=== PATIENT | female | born 1990 | race Caucasian/White ===

== ENCOUNTER 2018-04-23 11:13 | Day surgery (SDC) | payer OTHER ==
[2018-04-23 11:43] VITALS: BMI 37.9
--- NOTE | 2018-04-23 12:10 | PDOC.LDHP ---
Labor and Delivery H&P Chief complaint: other ( Monitoring) HPI: This is a patient of Dr Hogue Sent to Triage for NST Here due to FHTs 120 at office (underwent BPP at [facility] office prior to arrival) HPI: 27 yo with EDC 05/22, EGA 35 weeks 6 days, sent here from [facility] office for NST after FHT check there revealed FHTs around 200. Possible prolonged accel? No LOF HX, no VB, feels baby moving. No recent trauma. BPP performed in office today was "normal" by her report (I do not have that report) . Here for NST follow up. She is undergoing weekly antepartum survellance due to 27 week IUFD in past. She has 2 other deliveries (38 weeks). Per Lennie, APA workup was normal. Review of Systems: complete ROS performed and as per HPI Current gestational age (weeks): 35 (6 days) Due date: 05/22/18 Dating criteria: last menstrual period, other (20 week sono performed as well) Grav: 5 Para: 3 OB History Details: Living 2, one 27 week IUFD Current complications: none Abnormal US findings: No Current medications: pre- vitamins Previous surgical history: none Allergies/Adverse Reactions: Allergies Allergy/AdvReac Type Severity Reaction Status Date / Time No Known Allergies Allergy Verified 04/23/18 11:35 Social history: none - Physical Exam Vital signs reviewed and normal: yes (132/81; 97; temp 98.5; RR 18 unlabored) General: NAD Abdomen: gravid FHT: category 1 (Baseline is 140s with moderate variability and accels) [place] contractions every: none - Assessment Antepartum survelence for this 27 yo [id number] at 35 weeks 6 days. No indication for steroids at this time. NST reactive, criteria met. - Plan Plan: observation in L&D (NST in office which showed FHR tachycardia may have been aberrant read or isolated proloned accel. Image reviewed from office shows "accel" at same time of mother percieved movement by "clicker stamp", doppler may have combined movement with the FHR for aberrant read. No evidence tachycardia now, and reactivity present. I have reviewed this in detail with her. NST reviewed with her as well. Per verbal with Lennie, BPP was 01/27. OK for follow up Thursday.)
== END 2018-04-23 12:23 | disposition home or self-care (01) ==
LOC: L&D/OP 11:13
PROVIDERS: ATTEND Obstetrics & Gynecology
DX: O76 Abnormality in fetal heart rate and rhythm complicating labor and delivery (principal); Z3A.35 35 weeks gestation of pregnancy
CPT/HCPCS: 59025; 99282

== ENCOUNTER 2018-05-19 05:30 | Inpatient (IN) | payer OTHER ==
[2018-05-19] MEDS: Lactated Ringer's 1,000 ML IV SCH ×2 (07:09→13:00)
[2018-05-19] MEDS ORDERED: Misoprostol 200 MCG TAB PR PRN (07:55)
[2018-05-19] MEDS ORDERED: HYDROcodone/Acetaminophen 5/325 mg Tablet PO PRN ×4 (07:55→21:15)
[2018-05-19] MEDS ORDERED: Methylergonovine 0.2 MG/ML VIAL IM PRN (07:55)
[2018-05-19] MEDS ORDERED: Ondansetron PF 4 MG/2 ML Vial IVP PRN ×3 (07:55→21:15)
[2018-05-19] MEDS ORDERED: Ibuprofen 800 MG TAB PO PRN (07:55)
[2018-05-19] MEDS ORDERED: Acetaminophen 500 MG TAB PO PRN (07:55)
[2018-05-19] MEDS ORDERED: Butorphanol Tartrate 1 MG/ML VIAL SLOW IVP PRN (07:55)
[2018-05-19] MEDS ORDERED: Promethazine HCl 25 MG/ML VIAL IM PRN ×3 (07:55→21:15)
[2018-05-19] MEDS ORDERED: Carboprost 250 MCG/ML AMP IM PRN (07:55)
[2018-05-19] MEDS ORDERED: Misoprostol 100 MCG TAB ONE ×2 (07:55→09:39)
[2018-05-19] MEDS ORDERED: Lidocaine 1% (PF) 30 ML VIAL SC PRN (07:55)
[2018-05-19] MEDS ORDERED: NS / Oxytocin 40 units/1000ml 1,000 ML IV PRN (07:55)
[2018-05-19] MEDS ORDERED: NS w/ Oxytocin 10 units 500 ML IV SCH ×2 (08:00)
[2018-05-19] MEDS: Misoprostol 100 MCG TAB VAG SCH (08:02)
[2018-05-19 08:10] LABS: Hemoglobin 12.6 g/dL (12.0-16.0); Mean Corpuscular HGB CONC 33.7 g/dL (32.0-36.0); Mean Corpuscular Hemoglobin 27.7 pg (27.0-31.0); Mean Corpuscular Volume 82.3 fL (78.0-98.0); Mean Platelet Volume 8.4 fL (7.4-10.4); Platelet Count 225 thou/uL (130-400); RBC Distribution Width 12.8 % (11.5-14.5); Red Blood Cell (RBC) Count 4.53 mill/uL (4.20-5.40); White Blood Cell (WBC) Count 11.6 thou/uL (4.8-10.8)
[2018-05-19 08:42] VITALS: BMI 38.6
[2018-05-19 08:49] LABS: HBSAg Index 0.23 S/CO (0-0.99); Hep B Surf Ag Non-Reactive S/CO (NonReactive); Syphilis Antibody Nonreactive (Nonreactive); Syphilis Antibody Index 0.03 S/CO (<1.00 Non-Reactive)
[2018-05-19] MEDS ORDERED: Fentanyl 4 mcg/Bup 0.1% Cadd 100 ML ONE (12:21)
[2018-05-19] MEDS ORDERED: Eucerin (Mineral Oil/Petrolatum,White) 30 gm Jar TOP PRN (12:57)
[2018-05-19] MEDS ORDERED: diphenhydrAMINE 50 MG/ML VIAL IVP PRN (12:57)
[2018-05-19] MEDS ORDERED: ePHEDrine/0.9% NaCl/PF SYRINGE 50 mg/10 ml SLOW IVP PRN (12:57)
[2018-05-19] MEDS ORDERED: Naloxone HCl 0.4 mg/ml Vial IVP PRN ×2 (12:57)
[2018-05-19] MEDS ORDERED: Acetaminophen 325 MG TAB PO PRN (12:57)
[2018-05-19] MEDS ORDERED: Lactated Ringer's 500 ML IV PRN (12:57)
[2018-05-19] MEDS ORDERED: Fentanyl 4 mcg/Bupivacaine 0.1% Cassette 100 ML EPIDURAL SCH (13:00)
[2018-05-19] MEDS ORDERED: Communication Order-Pharmacy FS SCH (13:00)
[2018-05-19] MEDS ORDERED: Bupivacaine/Epinephrine 0.25% 30 ML VIAL ONE (15:00)
[2018-05-19] MEDS ORDERED: Bupivacaine 0.25% HCL 30 ML VIAL ONE (15:00)
--- NOTE | 2018-05-19 19:31 | PDOC.LDHP ---
Labor and Delivery H&P Chief complaint: scheduled induction HPI: 28 y/o at 39 and 4/7 weeks for medical term induction of labor. Grav: 5 Para: 2 Current complications: other (Morbid Obesity, Hx of Demise) Abnormal US findings: No Current medications: pre- vitamins Previous surgical history: none Allergies/Adverse Reactions: Allergies Allergy/AdvReac Type Severity Reaction Status Date / Time No Known Allergies Allergy Verified 04/23/18 11:35 Social history: none - Physical Exam Vital signs reviewed and normal: yes General: NAD Heart: RRR Lungs: nonlabored breathing Abdomen: NTTP Extremeties: no edema FHT: category 1 - Assessment L&D Assessment: medically indicated induction - Plan Plan: admit to L&D, cervical ripening
[2018-05-19] MEDS ORDERED: diphenhydrAMINE 25 MG CAP PO PRN (21:15)
[2018-05-19] MEDS ORDERED: Lanolin Ointment 7 GM TUBE TOP PRN (21:15)
[2018-05-19] MEDS ORDERED: Misoprostol 200 MCG TAB VAG PRN (21:15)
[2018-05-19] MEDS ORDERED: NS / Oxytocin 40 units/1000ml 1,000 ML IV SCH (21:15)
[2018-05-19] MEDS ORDERED: Bisacodyl 10 MG SUPP PR PRN (21:15)
[2018-05-19] MEDS ORDERED: Varicella virus, LIVE 0.5 ML VIAL SC ONE (21:15)
[2018-05-19] MEDS ORDERED: Benzocaine/Menthol 20-0.5% 60 ML CAN TOP PRN (21:15)
[2018-05-19] MEDS ORDERED: Adacel (T-DAP) 0.5 ML VIAL IM ONE (21:15)
[2018-05-19] MEDS ORDERED: Zolpidem Tartrate 5 MG TAB PO PRN (21:15)
[2018-05-19] MEDS ORDERED: Measles/Mumps/Rubella 10 MCG/0.5 ML VIAL SC ONE (21:15)
[2018-05-19] MEDS ORDERED: Milk Of Magnesia 30 ML UDCUP PO PRN (21:15)
[2018-05-19] MEDS ORDERED: Preparation H Ointment 28 GM TUBE PR PRN (21:15)
[2018-05-19] MEDS: Ibuprofen 800 MG TAB PO SCH (22:31)
[2018-05-20] MEDS: Misoprostol 100 MCG TAB VAG SCH (02:17)
[2018-05-20 06:29] LABS: Hemoglobin 11.8 g/dL (12.0-16.0); Mean Corpuscular HGB CONC 34.2 g/dL (32.0-36.0); Mean Corpuscular Hemoglobin 28.5 pg (27.0-31.0); Mean Corpuscular Volume 83.1 fL (78.0-98.0); Platelet Count 188 thou/uL (130-400); RBC Distribution Width 12.8 % (11.5-14.5); Red Blood Cell (RBC) Count 4.15 mill/uL (4.20-5.40); White Blood Cell (WBC) Count 10.7 thou/uL (4.8-10.8)
[2018-05-20] MEDS: Ibuprofen 800 MG TAB PO SCH ×3 (06:36→21:26)
[2018-05-20] MEDS: Ferrous Sulfate 325 MG TAB PO SCH ×2 (07:56→15:18)
[2018-05-20] MEDS: Prenatal Vitamin 1 TAB PO SCH (09:13)
[2018-05-20] MEDS: Docusate Calcium (SURFAK) 240 MG CAP PO SCH ×2 (09:13→21:26)
--- NOTE | 2018-05-20 18:22 | PDOC.PP ---
Post Progress Note Post Day #: 1 PO intake tolerated: yes Flatus: yes Ambulation: yes Vital Signs (12 hours) Temp Pulse Resp BP BP Pulse Ox 05/20/18 17:00 98.2 F 82 16 100/52 L 93 L 05/20/18 12:23 97.7 F 91 20 112/54 L 05/20/18 08:15 97.7 F 80 20 112/66 96 Weight Weight 277 lb - Physical Examination General: NAD Cardiovascular: no m/r/g Respiratory: clear to auscultation bilaterally, non-labored breathing Abdominal: + bowel sounds, lochia, no distention Extremities: negative homans (B) Skin: CS incision dry & intact, no rash Neurological: no gross focal deficits Psychiatric: A&Ox3, normal affect Result Diagrams: 05/20/18 05:55 Additional Labs: Post Labs Blood Type B POSITIVE 05/19/18 07:17 Hep Bs Antigen Non-Reactive S/CO (NonReactive) 05/19/18 07:17
--- NOTE | 2018-05-21 03:33 | DN ---
DATE OF PROCEDURE: 05/19/2018 PREOPERATIVE DIAGNOSIS: Intrauterine at 39 weeks and 4 days with term medical induction of labor for a patient with high-risk with previous history of stillbirth, undergoing weekly antepartum testing. POSTOPERATIVE DIAGNOSIS: Intrauterine at 39 weeks and 4 days with term medical induction of labor for a patient with high-risk with previous history of stillbirth, undergoing weekly antepartum testing. PROCEDURE: Spontaneous vaginal delivery over intact perineum. FINDINGS: Viable male infant, weighing 3886 g or 8 pounds 9 ounces. Apgars of 8 and 9. QUANTITATIVE BLOOD LOSS: 340 g. COMPLICATIONS: None. DETAILS OF THE PROCEDURE: The patient presented to [facility] where she was admitted to the labor and delivery service. The patient underwent a normal and uneventful labor with normal cervical dilatation until she was found to be completely dilated. She was then allowed to push and was able to bring the baby down and delivered the baby in a vertex presentation without difficulties. Once the head delivered in occiput anterior position, the shoulders followed spontaneously along with the rest of the baby's body. Once out the baby's mouth and nose were bulb suctioned. The cord was clamped and cut and baby was handed to waiting attendants. Cord blood was collected. Gentle fundal massage was performed and the placenta delivered intact without problems. Hemostasis was assured. Quantitative blood loss was calculated. Inspection of the cervix, vaginal vault, and perineum did not reveal any lacerations needing suturing. Once again, hemostasis was within normal limits and the patient was allowed to recover in the labor and delivery room. Baby went to nursery. Job ID: [id number] [facility]
[2018-05-21] MEDS: Ibuprofen 800 MG TAB PO SCH (06:23)
[2018-05-21] MEDS: Ferrous Sulfate 325 MG TAB PO SCH (07:50)
[2018-05-21 08:23] VITALS: BP 87/59; TEMP 98.1
[2018-05-21] MEDS: Docusate Calcium (SURFAK) 240 MG CAP PO SCH (09:22)
[2018-05-21] MEDS: Prenatal Vitamin 1 TAB PO SCH (09:22)
== END 2018-05-21 12:15 | disposition home or self-care (01) | DRG 807 ==
LOC: L&D 06:18 → 3SW 21:49
PROVIDERS: ADMIT Obstetrics & Gynecology; ATTEND Obstetrics & Gynecology
PROC: 10E0XZZ Delivery of Products of Conception, External Approach (ICD-10-PCS; principal; 2018-05-19)
DX: O99.214 Obesity complicating childbirth (principal); Z37.0 Single live birth; E66.01 Morbid (severe) obesity due to excess calories; Z3A.39 39 weeks gestation of pregnancy; Z87.59 Personal history of other complications of pregnancy, childbirth and the puerperium; Z68.38 Body mass index [BMI] 38.0-38.9, adult
CPT/HCPCS: 36415; 85027; 86780; 86850; 86900; 86901; 87340; 90715; J2001; S0020